=== PATIENT | male | born 1965 | race Caucasian/White ===

== ENCOUNTER 2019-07-29 07:30 | Inpatient (IN) | payer BC ==
[2019-07-25 14:05] LABS: ABG BASE EXCESS -3.5 mmol/L (-2.0-3.0); ABG HCO3 20.5 mmol/L (22.0-26.0); ABG OXYGEN SATURATION 96.2 % (95-98); ABG PCO2 (T) 34.5 mmHg (35.0-45.0); ABG PH (T) 7.391 (7.350-7.450); ABG PO2 (T) 81.2 mmHg (83-108); ALLEN'S TEST Positive; FCOHb 0.6 % (0.5-1.5); FMetHb 0.1 % (0.3-1.12); FO2Hb 95.5 % (94-100); TOTAL HEMOGLOBIN 16.6 G/dl (14.0-17.9)
[2019-07-25 16:43] LABS: HEMOGLOBIN A1C 8.5 % (4.5-6.2)
[2019-07-25 16:47] LABS: PRE OP INR 1.1 INR; PRE OP PROTIME 11.2 SECONDS (9.0-12.0)
[2019-07-25 16:48] LABS: ALBUMIN 3.5 G/DL (3.4-5.0); ALBUMIN/GLOBULIN RATIO 0.7 (1.1-1.5); ALKALINE PHOSPHATASE 94 IU/L (46-116); BLOOD UREA NITROGEN 23 MG/DL (7-18); BUN/CREATININE RATIO 13.7 (5.4-32.0); CALCIUM 9.3 MG/DL (8.5-10.1); CHLORIDE 105 MMOL/L (99-107); CREATININE 1.68 MG/DL (0.60-1.10); PRE OP ALT 67 U/L (30-65); PRE OP ANION GAP 11 (8-16); PRE OP AST 48 U/L (10-37); PRE OP BILIRUB, TOTAL 0.5 MG/DL (0.0-1.0); PRE OP GLUCOSE 124 MG/DL (70-104); PRE OP POTASSIUM 4.3 MMOL/L (3.4-5.1); PRE OP SODIUM 140 MMOL/L (135-145); TOTAL CARBON DIOXIDE 23.7 MMOL/L (24-32); TOTAL PROTEIN 8.2 G/DL (6.4-8.2); eGFR 43 ML/MIN
[2019-07-25 16:50] LABS: BASOPHILS # (AUTO) 0.1 X10'3 (0-0.2); BASOPHILS % (AUTO) 0.6 % (0-1); EOSINOPHILS # (AUTO) 0.3 X10'3 (0-0.9); EOSINOPHILS % (AUTO) 2.1 % (0-6); LYMPHOCYTES # (AUTO) 2.1 X10'3 (1.1-4.8); LYMPHOCYTES % (AUTO) 15.7 % (21-51); MEAN CORPUSCULAR HEMOGLOBIN 30.1 PG (27.0-31.0); MEAN CORPUSCULAR VOLUME 91.1 FL (78-98); MEAN PLATELET VOLUME 8.5 FL (7.4-10.4); MONOCYTES # (AUTO) 0.9 X10'3 (0-0.9); MONOCYTES % (AUTO) 6.3 % (2-12); NEUTROPHILS # (AUTO) 10.3 X10'3 (1.8-7.7); NEUTROPHILS % (AUTO) 75.3 % (42-75); PRE OP HEMATOCRIT 49.2 % (42.0-52.0); PRE OP HEMOGLOBIN 16.3 g/dL (14.0-17.9); PRE OP PLATELET COUNT 259 X10'3 (140-440); RED BLOOD COUNT 5.41 X10'6 (4.70-6.10); RED CELL DISTRIBUTION WIDTH 15.5 % (11.5-14.5)
[2019-07-25 17:10] LABS: CLARITY,URINE CLEAR (Clear); COLOR,URINE YELLOW (Yellow); GLUCOSE, URINE NEGATIVE (Neg); KETONES,URINE NEGATIVE (Neg); LEUKOCYTE ESTERASE ,URINE NEGATIVE (Neg); NITRITES, URINE NEGATIVE (Neg); OCCULT BLOOD,URINE NEGATIVE (Neg); PH,URINE 5.5 (4.8-8.0); PROTEIN,URINE TRACE mg/dl (Neg); UROBILINOGEN,URINE 0.2 E.U/dL (0.2-1.0)
[2019-07-25 17:24] LABS: UA COLLECTION TYPE CLN CATCH MIDSTREAM
[2019-07-25 17:25] LABS: BACTERIA,URINE FEW /HPF (Neg); RBC,URINE NONE SEEN /HPF (0-2); SQUAMOUS EPITHELIAL CELL,UR FEW /LPF (FEW); WBC,URINE 0-4 /HPF (0-4)
[2019-07-25 17:26] LABS: MUCUS STRANDS FEW /LPF (Neg)
[~2019-07-29] VITALS: Ht 182.9 cm; Wt 147.9 kg
[~2019-07-29 07:30] MED LIST: ASPI81TA52 PO; ATOR40TA7 PO; CARV-50 PO; DOCUMENT DATE & TIME OF BETA-BLOCKER PO ONE; LISI2.5T2 PO; RIVA15TA PO; ceFAZolin/D5W- 1GM premix 50 ML IV ONE; cefazolin/dext.iso 2gm/50ml 50 ML IV ONE; dextrose 50%-water 50ml dispensing syringe IV PRN; famotidine 20mg tablet PO ONE; gabapentin 300mg capsule PO ONE; insulin Lispro (HumaLOG) vial - multi-dose SQ PRN; insulin regular, human 100 UNIT in normal saline 100ml IV soln 99 ML IV SCH; metoprolol tartrate 12.5mg (1/2 tablet) PO ONE; mupirocin 2% nasal ointment 1gm UD NS ONE; ringers solution, lacted 1,000 ML IV SCH; vancomycin inj 1,500 MG in normal saline 300ml IV soln IV ONE
[2019-07-30] VITALS (15 sets, daily range): BP systolic 92–152; BP diastolic 32–87
[2019-07-30] MEDS ORDERED: ROPIVAcaine 0.5% (5mg/ml) 30ml vial ONE (05:14)
[2019-07-30] MEDS ORDERED: LIDOcaine 1% (10mg/ml) 2ml vial ONE (05:22)
[2019-07-30] MEDS ORDERED: vancomycin inj 1,500 MG in normal saline 300ml IV soln IV ONE (05:30)
[2019-07-30] MEDS ORDERED: famotidine 20mg tablet PO ONE (05:30)
[2019-07-30] MEDS ORDERED: ringers solution, lacted 1,000 ML IV SCH (05:30)
[2019-07-30] MEDS ORDERED: metoprolol tartrate 12.5mg (1/2 tablet) PO ONE (05:30)
[2019-07-30] MEDS ORDERED: cefazolin/dext.iso 2gm/50ml 50 ML IV ONE (05:30)
[2019-07-30] MEDS ORDERED: mupirocin 2% nasal ointment 1gm UD NS ONE (05:30)
[2019-07-30] MEDS ORDERED: DOCUMENT DATE & TIME OF BETA-BLOCKER PO ONE (05:30)
[2019-07-30] MEDS ORDERED: gabapentin 300mg capsule PO ONE (05:30)
[2019-07-30] MEDS: insulin regular, human 100 UNIT in normal saline 100ml IV soln 99 ML IV SCH ×6 (05:30→18:33)
[2019-07-30] MEDS ORDERED: ceFAZolin/D5W- 1GM premix 50 ML IV ONE (05:30)
[2019-07-30] MEDS ORDERED: LORazepam 2 mg/ml vial ONE (06:04)
[2019-07-30] MEDS ORDERED: midazolam 2 mg/2 ml injection ONE (06:09)
[2019-07-30] MEDS ORDERED: SUFENTANIL CITRATE 50 MCG/ML 2ml ampule IV ONE ×2 (06:09→08:08)
[2019-07-30] MEDS ORDERED: aminocaproic acid 250 MG/1 ML inj. ONE ×2 (06:14→08:00)
[2019-07-30] MEDS ORDERED: INSULIN R 100 UNIT in NS 100ML (1 UNIT/1 ML) BAG IV ONE (06:14)
[2019-07-30] MEDS ORDERED: protamine sulf. 10mg/ml inj. IV ONE (06:14)
[2019-07-30] MEDS ORDERED: nitroGLYCERIN in D5W 50mg/250ml (Tridil) infusion IV ONE (06:14)
[2019-07-30] MEDS ORDERED: DOPamine/D5W 400mg/250ml bag IV ONE (06:14)
[2019-07-30] MEDS ORDERED: isoflurane 100ml inhalation liquid IH ONE (06:14)
[2019-07-30] MEDS ORDERED: ceFAZolin 1000mg inj ONE (06:14)
[2019-07-30] MEDS ORDERED: papaverine 30 mg/ml 2ml inj. IA ONE (07:00)
[2019-07-30] MEDS ORDERED: heparin 10,000 units/1 ML INJ IR ONE (07:00)
[2019-07-30 07:06] LABS: ABG HCO3 20.1 mmol/L (22.0-26.0); ABG OXYGEN SATURATION 99.3 % (95-98); ABG PCO2 41.8 mmHg (35.0-45.0); CL (ABG) 103 mmol/L (99-107); FCOHb 0.8 % (0.5-1.5); FMetHb 0.3 % (0.3-1.12); FO2Hb 98.2 % (94-100); GLUCOSE (ABG) 191 mg/dl (70-104); K (ABG) 4.5 mmol/L (3.3-5.1); NA (ABG) 137 mmol/L (135-145); TOTAL HEMOGLOBIN 14.9 G/dl (14.0-17.9)
[2019-07-30] MEDS ORDERED: papaverine 30 mg/ml 2ml inj. ONE (08:00)
[2019-07-30] MEDS ORDERED: calcium chloride 100 MG/1 ML inj IV ONE (08:00)
[2019-07-30] MEDS ORDERED: LIDOcaine 2% (20 mg/ml) 5ml cardiac syringe ONE (08:00)
[2019-07-30] MEDS ORDERED: sodium bicarbonate (8.4%) 1 mEq/ml syringe ONE (08:00)
[2019-07-30] MEDS ORDERED: potassium Cl 2 mEq/ml inj IV ONE (08:00)
[2019-07-30] MEDS ORDERED: furosemide 40mg/4ml inj ONE (08:00)
[2019-07-30] MEDS ORDERED: magnesium sulf 1 GM/2 ML ONE (08:00)
[2019-07-30] MEDS ORDERED: heparin 10,000 units/1 ML INJ ONE (08:00)
[2019-07-30] MEDS ORDERED: methylPREDNISolone sod. succ. 500mg inj ONE (08:00)
[2019-07-30] MEDS ORDERED: phenylephrine 10mg/ml inj. ONE ×2 (08:00→08:15)
[2019-07-30] MEDS ORDERED: albumin (human) 25% 100 ML IV solution IV ONE (08:00)
[2019-07-30] MEDS ORDERED: heparin 1,000 units/ml 10ml inj ONE (08:00)
[2019-07-30 08:10] LABS: ABG BASE EXCESS VENOUS -4.5 mmol/L; ABG HCO3 VENOUS 22.6 mmol/L; ABG PCO2 VENOUS 49.4 mmHg; ABG PO2 VENOUS 39.5 mmHg; CL (ABG) 103 mmol/L (99-107); FCOHb VENOUS 0.7 %; FHHb VENOUS 28.6 %; FMetHb VENOUS 0.5 %; FO2Hb VENOUS 70.2 %; GLUCOSE (ABG) 156 mg/dl (70-104); IONIZED CA (ABG) 1.07 mmol/L (1.03-1.32); K (ABG) 4.4 mmol/L (3.3-5.1); NA (ABG) 136 mmol/L (135-145); TOTAL HEMOGLOBIN 14.5 G/dl (14.0-17.9)
[2019-07-30] MEDS ORDERED: rocuronium 10mg/ml inj IV ONE ×2 (08:15→10:53)
[2019-07-30] MEDS ORDERED: LIDOcaine 2% (20mg/ml) 5ml vial ONE (08:15)
[2019-07-30] MEDS ORDERED: epiNEPHrine 1 mg/ml inj ONE (08:15)
[2019-07-30] MEDS ORDERED: succinylcholine 20mg/ml inj IV ONE (08:15)
[2019-07-30] MEDS ORDERED: etomidate 2mg/ml inj. ONE (08:15)
[2019-07-30 08:31] LABS: ABG BASE EXCESS -5.4 mmol/L (-2.0-3.0); ABG HCO3 19.3 mmol/L (22.0-26.0); ABG OXYGEN SATURATION 99.1 % (95-98); ABG PCO2 35.1 mmHg (35.0-45.0); ABG PH 7.359 (7.350-7.450); ABG PO2 221.8 mmHg (60.0-100.0); CL (ABG) 101 mmol/L (99-107); FCOHb 0.5 % (0.5-1.5); FMetHb 0.4 % (0.3-1.12); FO2Hb 98.2 % (94-100); GLUCOSE (ABG) 130 mg/dl (70-104); IONIZED CA (ABG) 0.97 mmol/L (1.03-1.32); K (ABG) 4.3 mmol/L (3.3-5.1); NA (ABG) 133 mmol/L (135-145); TOTAL HEMOGLOBIN 12.2 G/dl (14.0-17.9)
[2019-07-30 08:55] LABS: ABG BASE EXCESS -2.9 mmol/L (-2.0-3.0); ABG HCO3 22.7 mmol/L (22.0-26.0); ABG OXYGEN SATURATION 99.2 % (95-98); ABG PCO2 42.4 mmHg (35.0-45.0); ABG PH 7.346 (7.350-7.450); ABG PO2 235.1 mmHg (60.0-100.0); CL (ABG) 103 mmol/L (99-107); FCOHb 0.6 % (0.5-1.5); FMetHb 0.5 % (0.3-1.12); FO2Hb 98.1 % (94-100); GLUCOSE (ABG) 123 mg/dl (70-104); IONIZED CA (ABG) 1.01 mmol/L (1.03-1.32); NA (ABG) 135 mmol/L (135-145); TOTAL HEMOGLOBIN 12.3 G/dl (14.0-17.9)
[2019-07-30] MEDS ORDERED: ipratropium/albuterol 3ml nebule IH PRN (09:10)
[2019-07-30 09:20] LABS: ABG BASE EXCESS VENOUS -1.3 mmol/L; ABG HCO3 VENOUS 25.3 mmol/L; ABG PCO2 VENOUS 50.6 mmHg; ABG PO2 VENOUS 51.6 mmHg; CL (ABG) 103 mmol/L (99-107); FCOHb VENOUS 0.6 %; FHHb VENOUS 16.3 %; FMetHb VENOUS 0.4 %; FO2Hb VENOUS 82.7 %; GLUCOSE (ABG) 124 mg/dl (70-104); IONIZED CA (ABG) 1.02 mmol/L (1.03-1.32); K (ABG) 5.4 mmol/L (3.3-5.1); NA (ABG) 137 mmol/L (135-145); TOTAL HEMOGLOBIN 12.4 G/dl (14.0-17.9)
[2019-07-30 09:40] LABS: ABG BASE EXCESS -1.9 mmol/L (-2.0-3.0); ABG HCO3 23.9 mmol/L (22.0-26.0); ABG OXYGEN SATURATION 99.4 % (95-98); ABG PCO2 44.9 mmHg (35.0-45.0); ABG PH 7.344 (7.350-7.450); ABG PO2 344.3 mmHg (60.0-100.0); CL (ABG) 104 mmol/L (99-107); FCOHb 0.8 % (0.5-1.5); FMetHb 0.4 % (0.3-1.12); FO2Hb 98.2 % (94-100); GLUCOSE (ABG) 125 mg/dl (70-104); IONIZED CA (ABG) 1.02 mmol/L (1.03-1.32); K (ABG) 5.1 mmol/L (3.3-5.1); NA (ABG) 136 mmol/L (135-145); TOTAL HEMOGLOBIN 12.4 G/dl (14.0-17.9)
[2019-07-30 10:05] LABS: ABG BASE EXCESS -2.5 mmol/L (-2.0-3.0); ABG OXYGEN SATURATION 99.2 % (95-98); ABG PCO2 42.6 mmHg (35.0-45.0); ABG PO2 321.6 mmHg (60.0-100.0); CL (ABG) 104 mmol/L (99-107); FCOHb 0.1 % (0.5-1.5); FMetHb 0.5 % (0.3-1.12); FO2Hb 98.6 % (94-100); GLUCOSE (ABG) 126 mg/dl (70-104); IONIZED CA (ABG) 1.03 mmol/L (1.03-1.32); K (ABG) 4.9 mmol/L (3.3-5.1); NA (ABG) 136 mmol/L (135-145); TOTAL HEMOGLOBIN 12.4 G/dl (14.0-17.9)
[2019-07-30 10:56] LABS: ABG BASE EXCESS -2.6 mmol/L (-2.0-3.0); ABG HCO3 23.7 mmol/L (22.0-26.0); ABG OXYGEN SATURATION 99.1 % (95-98); ABG PCO2 47.2 mmHg (35.0-45.0); ABG PH 7.319 (7.350-7.450); ABG PO2 300.7 mmHg (60.0-100.0); CL (ABG) 104 mmol/L (99-107); FCOHb 0.2 % (0.5-1.5); FMetHb 0.6 % (0.3-1.12); FO2Hb 98.3 % (94-100); GLUCOSE (ABG) 142 mg/dl (70-104); IONIZED CA (ABG) 1.04 mmol/L (1.03-1.32); K (ABG) 4.7 mmol/L (3.3-5.1); NA (ABG) 136 mmol/L (135-145); TOTAL HEMOGLOBIN 12.7 G/dl (14.0-17.9)
[2019-07-30 11:25] LABS: ABG BASE EXCESS -1.8 mmol/L (-2.0-3.0); ABG HCO3 24.1 mmol/L (22.0-26.0); ABG OXYGEN SATURATION 98.7 % (95-98); ABG PCO2 45.4 mmHg (35.0-45.0); ABG PH 7.342 (7.350-7.450); ABG PO2 227.6 mmHg (60.0-100.0); CL (ABG) 103 mmol/L (99-107); FMetHb 0.6 % (0.3-1.12); FO2Hb 98.1 % (94-100); GLUCOSE (ABG) 137 mg/dl (70-104); IONIZED CA (ABG) 1.51 mmol/L (1.03-1.32); K (ABG) 4.8 mmol/L (3.3-5.1); NA (ABG) 134 mmol/L (135-145); TOTAL HEMOGLOBIN 11.9 G/dl (14.0-17.9)
[2019-07-30 11:56] LABS: ABG BASE EXCESS -2.5 mmol/L (-2.0-3.0); ABG HCO3 22.9 mmol/L (22.0-26.0); ABG OXYGEN SATURATION 91.9 % (95-98); ABG PCO2 41.7 mmHg (35.0-45.0); ABG PH 7.357 (7.350-7.450); ABG PO2 65.2 mmHg (60.0-100.0); CL (ABG) 104 mmol/L (99-107); FCOHb 0.6 % (0.5-1.5); FMetHb 0.5 % (0.3-1.12); FO2Hb 90.9 % (94-100); GLUCOSE (ABG) 177 mg/dl (70-104); IONIZED CA (ABG) 1.13 mmol/L (1.03-1.32); K (ABG) 4.6 mmol/L (3.3-5.1); NA (ABG) 140 mmol/L (135-145); TOTAL HEMOGLOBIN 12.9 G/dl (14.0-17.9)
[2019-07-30 12:31] LABS: ABG BASE EXCESS -4.6 mmol/L (-2.0-3.0); ABG HCO3 21.6 mmol/L (22.0-26.0); ABG PCO2 43.9 mmHg (35.0-45.0); ABG PO2 53.6 mmHg (60.0-100.0); CL (ABG) 104 mmol/L (99-107); FCOHb 0.9 % (0.5-1.5); FMetHb 0.5 % (0.3-1.12); FO2Hb 83.8 % (94-100); GLUCOSE (ABG) 188 mg/dl (70-104); IONIZED CA (ABG) 1.12 mmol/L (1.03-1.32); K (ABG) 4.4 mmol/L (3.3-5.1); NA (ABG) 138 mmol/L (135-145); TOTAL HEMOGLOBIN 13.6 G/dl (14.0-17.9)
[2019-07-30 12:50] LABS: ACTIVATED CLOTTING TIME 120 SEC (101-148)
[2019-07-30 12:50] LABS: ACT @ 1.70 U 286 SEC (193-297); ACT @ 2.84 U 394 SEC (260-420); BASELINE ACT 135 SEC (101-148)
[2019-07-30] MEDS ORDERED: DOPamine 400mg/D5W 250ml 250 ML IV PRN (12:52)
[2019-07-30] MEDS ORDERED: nitroGLYCERIN-Tridil 50MG/D5W 250 ML IV PRN (12:52)
[2019-07-30] MEDS ORDERED: niCARDipine-NS 40mg/200ml IVPB 200 ML IV PRN (12:52)
[2019-07-30] MEDS ORDERED: sodium chloride 0.45% 1,000 ML IV SCH (12:52)
[2019-07-30] MEDS ORDERED: dextrose 50%-water 50ml dispensing syringe IV PRN (12:55)
[2019-07-30] MEDS ORDERED: magnesium hydroxide 30ml (MOM) UD suspension PO PRN (12:55)
[2019-07-30] MEDS ORDERED: ondansetron/PF 4mg/2ml inj IV PRN (12:55)
[2019-07-30] MEDS ORDERED: sodium phosphate inj. 15 MMOL in dextrose 5%-water 150 ML IV PRN (12:55)
[2019-07-30] MEDS ORDERED: sodium phosphate inj. 30 MMOL in dextrose 5%-water 250 ML IV PRN (12:55)
[2019-07-30] MEDS ORDERED: insulin regular, human inj. 100 UNITS in normal saline 100ml IV soln 100 ML IV SCH ×2 (12:55)
[2019-07-30] MEDS ORDERED: magnesium 4gm in 100ml NS 100 ML IV PRN (12:55)
[2019-07-30] MEDS ORDERED: pantoprazole 40 MG vial IV ONE (12:55)
[2019-07-30] MEDS ORDERED: normal saline 250ml IV soln 250 ML IV PRN (12:55)
[2019-07-30] MEDS ORDERED: morphine 4 MG/ML inj SYRINge IV PRN (12:55)
[2019-07-30] MEDS ORDERED: Neutra Phos packet PO PRN (12:55)
[2019-07-30] MEDS ORDERED: metoclopramide 5 mg/ml inj IV PRN (12:55)
[2019-07-30] MEDS ORDERED: potassium Cl 20 mEq SR tablet PO PRN (12:55)
--- NOTE | 2019-07-30 13:50 | NUR ---
Received to room , accompanied by MDs and surgical crew. Placed on ventilator, to cardiac catheterization technologist, arterial line and PA line pressure monitored. Chest tubes to suction at 20 cm. Mallory cath to gravity drainage. Dressings are dry and intact. See assessment record. All vasoactive drugs are infusing via central line.
[2019-07-30 14:00] LABS: ABG BASE EXCESS -4.8 mmol/L (-2.0-3.0); ABG HCO3 20.5 mmol/L (22.0-26.0); ABG OXYGEN SATURATION 92.7 % (95-98); ABG PCO2 (T) 40.1 mmHg (35.0-45.0); ABG PH (T) 7.329 (7.350-7.450); ABG PO2 (T) 71.7 mmHg (83-108); FCOHb 0.6 % (0.5-1.5); FMetHb 0.3 % (0.3-1.12); FO2Hb 91.9 % (94-100); MINUTE VOLUME 13 L/min; PATIENT TEMPERATURE 37.6; PEEP 5 cm H2O; RESPIRATORY RATE 12 b/min; RESPIRATORY RATE (OBSERVED) 19 b/min; TIDAL VOLUME 800 mL; TOTAL HEMOGLOBIN 15.6 G/dl (14.0-17.9)
[2019-07-30 14:13] LABS: BASOPHILS # (AUTO) 0.1 X10'3 (0-0.2); BASOPHILS % (AUTO) 0.2 % (0-1); EOSINOPHILS # (AUTO) 0.1 X10'3 (0-0.9); EOSINOPHILS % (AUTO) 0.3 % (0-6); HEMATOCRIT 44.3 % (42.0-52.0); HEMOGLOBIN 14.6 g/dl (14.0-17.9); LYMPHOCYTES # (AUTO) 2.2 X10'3 (1.1-4.8); LYMPHOCYTES % (AUTO) 7.5 % (21-51); MEAN PLATELET VOLUME 8.1 FL (7.4-10.4); MONOCYTES # (AUTO) 1.5 X10'3 (0-0.9); MONOCYTES % (AUTO) 5.1 % (2-12); NEUTROPHILS # (AUTO) 25.3 X10'3 (1.8-7.7); NEUTROPHILS % (AUTO) 86.9 % (42-75); PLATELET COUNT 188 X10'3 (140-440); RED BLOOD COUNT 4.87 X10'6 (4.70-6.10); RED CELL DISTRIBUTION WIDTH 15.8 % (11.5-14.5)
[2019-07-30 14:20] LABS: PARTIAL THROMBOPLASTIN TIME 24 SECONDS (22-32)
[2019-07-30 14:22] LABS: ALANINE AMINOTRANSFERASE 59 U/L (12-78); ALBUMIN 2.8 G/DL (3.4-5.0); ALBUMIN/GLOBULIN RATIO 0.8 (1.1-1.5); ALKALINE PHOSPHATASE 68 IU/L (46-116); ANION GAP 12 (8-16); ASPARTATE AMINO TRANSFERASE 173 U/L (10-37); BILIRUBIN,TOTAL 0.9 MG/DL (0.1-1.0); BLOOD UREA NITROGEN 24 MG/DL (7-18); BUN/CREATININE RATIO 12.3 (5.4-32.0); CALCIUM 7.7 MG/DL (8.5-10.1); CHLORIDE 107 MMOL/L (99-107); CREATININE 1.95 MG/DL (0.60-1.10); GLUCOSE 233 MG/DL (70-104); MAGNESIUM 2.3 MG/DL (1.5-2.4); PHOSPHORUS 2.9 MG/DL (2.3-4.5); POTASSIUM 4.9 MMOL/L (3.5-5.1); SODIUM 141 MMOL/L (135-145); TOTAL CARBON DIOXIDE 22.5 MMOL/L (24-32); TOTAL PROTEIN 6.2 G/DL (6.4-8.2); eGFR 36 ML/MIN
[2019-07-30] MEDS: albumin (Human) 5% 250ml 250 ML IV PRN ×3 (14:23→15:40)
[2019-07-30 14:24] LABS: WHITE BLOOD COUNT 29.1 X10'3 (4.5-11.0)
[2019-07-30] MEDS: magnesium 2GM in 50ml NS 50 ML IV PRN ×2 (14:51→21:42)
[2019-07-30 14:58] LABS: PLATELET ESTIMATE NORMAL; TOTAL CELLS COUNTED 100
--- NOTE | 2019-07-30 16:37 | NUR ---
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 Will continue to follow. Addendum: 07/30/19 at [address] Amended: Links added.
[2019-07-30] MEDS ORDERED: albumin (Human) 5% 250ml 250 ML IV ONE ×2 (16:40)
--- NOTE | 2019-07-30 16:40 | NUR ---
Central line out [address] Rodriguez. Order for CXR obtained.
[2019-07-30] MEDS: gabapentin 300mg capsule PO SCH ×2 (16:44→20:34)
[2019-07-30] MEDS: ceFAZolin 1GM/D5W- ADD-VANTAGE 50 ML IV SCH ×2 (16:44→23:24)
[2019-07-30] MEDS: morphine 4 MG/ML inj SYRINge IV PRN ×2 (16:58→20:13)
--- NOTE | 2019-07-30 17:15 | NUR ---
Dr. Charles at bedside. Received order to DC central line.
[2019-07-30] MEDS ORDERED: amiodarone/D5 360MG/200ML BAG 200 ML IV SCH (17:45)
[2019-07-30] MEDS: insulin Lispro (HumaLOG) vial - multi-dose SQ SCH ×2 (18:00→20:20)
--- NOTE | 2019-07-30 18:00 | NUR ---
Dr. Rodriguez at bedside to assess pt. Lines discussed. Hemodynamics reviewed. New med orders received. Pacer started at 80 bpm. CO is to be maintained between 5.0-5.5 /min. Right IJ quad lumen has been discontinued per Dr. Tabares's order.
[2019-07-30] MEDS ORDERED: amiodarone/D5 360MG/200ML BAG 200 ML IV ONE (18:04)
[2019-07-30] MEDS ORDERED: epiNEPHrine inj 5 MG, calcium chloride inj. 1,000 MG in normal saline 250ml IV soln 235 ML IV PRN (18:15)
--- NOTE | 2019-07-30 18:15 | NUR ---
Dr. Rodriguez verbal orders for Milrinone gtt and Epi carmita gtt to maintain CO of 5-5.5, compatible at Y site per Marysol in pharmacy.
[2019-07-30] MEDS: amiodarone/D5 360MG/200ML BAG 200 ML IV SCH ×2 (18:34→23:24)
--- NOTE | 2019-07-30 18:40 | NUR ---
Problems reprioritized. Patient report given, questions answered & plan of care reviewed with SILVINA Pizarro.
--- NOTE | 2019-07-30 18:40 | NUR ---
Patient in room ICU 2045. I have received report from Aldo COOL and had the opportunity to ask questions and assume patient care. Pt resting in bed, EpiCal gtt infusing via introducer sheath, awaiting Milrinone gtt from pharmacy, will infuse with EpiCal gtt in introducer sheath in right IJ, medications are compatible per pharmacist Marysol. Insulin gtt for blood glucose control per protocol, amiodarone gtt for arrhythmia control. pt on vent SIMV mode with FiO2 at 55%, spo2 at 98%. mediastinal chest tubes to suction, no air leak, no crepitus, no tracheal deviation noted. Pt opening eyes and obeying commands. Please see IV flowsheet and Interventions for further information. Will continue to monitor.
[2019-07-30 18:45] LABS: OXYGEN SATURATION (MIXED VEN) 42.9 % (60-80); PO2 MIXED VENOUS (TEMP COR) 24.5 mmHg (35-46)
[2019-07-30] MEDS: milrinone (Primacor) 20mg/D5W 100 ML IV SCH ×2 (19:00→23:21)
--- NOTE | 2019-07-30 19:25 | NUR ---
Pt asihle-kr-nhr Grzegorz at bedside to visit, per Grzegorz pt wears home CPAP for sleep apnea, she will bring in tomorrow.
[2019-07-30 19:58] LABS: BASOPHILS % (AUTO) 0.1 % (0-1); EOSINOPHILS % (AUTO) 0 % (0-6); HEMATOCRIT 37.6 % (42.0-52.0); HEMOGLOBIN 12.6 g/dl (14.0-17.9); LYMPHOCYTES # (AUTO) 0.9 X10'3 (1.1-4.8); LYMPHOCYTES % (AUTO) 5.5 % (21-51); MEAN CORPUSCULAR HEMOGLOBIN 30.2 PG (27.0-31.0); MEAN CORPUSCULAR HGB CONC 33.4 g/dL (33.0-36.5); MEAN CORPUSCULAR VOLUME 90.5 FL (78-98); MEAN PLATELET VOLUME 8.1 FL (7.4-10.4); MONOCYTES # (AUTO) 0.4 X10'3 (0-0.9); MONOCYTES % (AUTO) 2.5 % (2-12); NEUTROPHILS # (AUTO) 15.7 X10'3 (1.8-7.7); NEUTROPHILS % (AUTO) 91.9 % (42-75); PLATELET COUNT 147 X10'3 (140-440); RED BLOOD COUNT 4.15 X10'6 (4.70-6.10); RED CELL DISTRIBUTION WIDTH 15.5 % (11.5-14.5); WHITE BLOOD COUNT 17.1 X10'3 (4.5-11.0)
[2019-07-30 20:07] LABS: ALBUMIN 3.4 G/DL (3.4-5.0); ANION GAP 12 (8-16); BLOOD UREA NITROGEN 26 MG/DL (7-18); BUN/CREATININE RATIO 11.7 (5.4-32.0); CALCIUM 7.2 MG/DL (8.5-10.1); CHLORIDE 108 MMOL/L (99-107); CREATININE 2.23 MG/DL (0.60-1.10); GLUCOSE 219 MG/DL (70-104); MAGNESIUM 2.4 MG/DL (1.5-2.4); PHOSPHORUS 1.8 MG/DL (2.3-4.5); POTASSIUM 4.8 MMOL/L (3.5-5.1); SODIUM 140 MMOL/L (135-145); TOTAL CARBON DIOXIDE 19.9 MMOL/L (24-32); eGFR 31 ML/MIN
[2019-07-30] MEDS: vancomycin/NS 1 GM ADD-VANTAGE 250 ML IV SCH (20:31)
[2019-07-30] MEDS: docusate sod 100mg capsule PO SCH (20:34)
[2019-07-30] MEDS: mupirocin 2% nasal ointment 1gm UD NS SCH (20:34)
--- NOTE | 2019-07-30 23:45 | NUR ---
pt extubated without issue at 2340, RT at bedside, pt able to talk with good quality of voice.
[2019-07-31] VITALS (24 sets, daily range): BP systolic 101–158; BP diastolic 3–100
--- NOTE | 2019-07-31 00:30 | NUR ---
Pt able to eat several ice chips, good swallowing, no nausea noted.
[2019-07-31] MEDS: insulin regular, human 100 UNIT in normal saline 100ml IV soln 99 ML IV SCH ×4 (01:34→07:25)
[2019-07-31 03:45] LABS: PARTIAL THROMBOPLASTIN TIME 25 SECONDS (22-32)
[2019-07-31 03:46] LABS: BASOPHILS % (AUTO) 0.1 % (0-1); EOSINOPHILS % (AUTO) 0 % (0-6); HEMATOCRIT 34.3 % (42.0-52.0); HEMOGLOBIN 11.5 g/dl (14.0-17.9); LYMPHOCYTES % (AUTO) 5.5 % (21-51); MEAN CORPUSCULAR HEMOGLOBIN 30.5 PG (27.0-31.0); MEAN CORPUSCULAR HGB CONC 33.4 g/dL (33.0-36.5); MEAN CORPUSCULAR VOLUME 91.3 FL (78-98); MEAN PLATELET VOLUME 8.7 FL (7.4-10.4); MONOCYTES # (AUTO) 0.5 X10'3 (0-0.9); MONOCYTES % (AUTO) 2.7 % (2-12); NEUTROPHILS # (AUTO) 16.5 X10'3 (1.8-7.7); NEUTROPHILS % (AUTO) 91.7 % (42-75); PLATELET COUNT 135 X10'3 (140-440); RED BLOOD COUNT 3.76 X10'6 (4.70-6.10); RED CELL DISTRIBUTION WIDTH 15.9 % (11.5-14.5)
[2019-07-31 04:04] LABS: ALANINE AMINOTRANSFERASE 65 U/L (12-78); ALBUMIN 3.3 G/DL (3.4-5.0); ALBUMIN/GLOBULIN RATIO 1.2 (1.1-1.5); ALKALINE PHOSPHATASE 46 IU/L (46-116); ANION GAP 8 (8-16); ASPARTATE AMINO TRANSFERASE 259 U/L (10-37); BILIRUBIN,TOTAL 0.4 MG/DL (0.1-1.0); BLOOD UREA NITROGEN 30 MG/DL (7-18); BUN/CREATININE RATIO 12.2 (5.4-32.0); CALCIUM 7.3 MG/DL (8.5-10.1); CHLORIDE 112 MMOL/L (99-107); CREATININE 2.46 MG/DL (0.60-1.10); GLUCOSE 151 MG/DL (70-104); MAGNESIUM 2.8 MG/DL (1.5-2.4); PHOSPHORUS 2.9 MG/DL (2.3-4.5); POTASSIUM 4.2 MMOL/L (3.5-5.1); SODIUM 145 MMOL/L (135-145); TOTAL CARBON DIOXIDE 24.9 MMOL/L (24-32); eGFR 28 ML/MIN
[2019-07-31] MEDS: potassium Cl 20mEq/100mL bag 100 ML IV PRN ×2 (05:08→07:24)
[2019-07-31] MEDS: HYDROcodone/acetaminophen 10/325mg tab PO PRN ×5 (05:27→23:45)
--- NOTE | 2019-07-31 05:40 | NUR ---
Pt ate applesauce after having [place], pt able to swallow without issue, pt is c/o sore throat.
--- NOTE | 2019-07-31 06:30 | NUR ---
Patient in room ICU 2045. I have received report from Moira COOL and had the opportunity to ask questions and assume patient care.
--- NOTE | 2019-07-31 06:33 | NUR ---
Problems reprioritized. Patient report given, questions answered & plan of care reviewed with Bayron COOL.
[2019-07-31] MEDS: gabapentin 300mg capsule PO SCH ×3 (07:36→20:56)
[2019-07-31] MEDS: docusate sod 100mg capsule PO SCH ×2 (07:36→19:49)
[2019-07-31] MEDS: vancomycin/NS 1 GM ADD-VANTAGE 250 ML IV SCH ×2 (07:37→19:47)
[2019-07-31] MEDS: ceFAZolin 1GM/D5W- ADD-VANTAGE 50 ML IV SCH ×3 (07:37→23:44)
[2019-07-31] MEDS: mupirocin 2% nasal ointment 1gm UD NS SCH ×2 (07:39→19:49)
[2019-07-31] MEDS ORDERED: metoprolol tartrate 12.5mg (1/2 tablet) PO SCH ×2 (08:00→20:00)
[2019-07-31] MEDS ORDERED: aspirin 325mg tablet, delayed-release (Ecotrin) PO SCH (08:00)
[2019-07-31] MEDS ORDERED: atorvastatin 10mg tablet PO SCH (08:00)
[2019-07-31] MEDS ORDERED: furosemide 10 MG/1 ML 10ml inj IV ONE (08:30)
[2019-07-31] MEDS: insulin Lispro (HumaLOG) vial - multi-dose SQ SCH ×4 (09:57→21:09)
[2019-07-31] MEDS: amiodarone/D5 360MG/200ML BAG 200 ML IV SCH ×4 (10:26→22:46)
[2019-07-31] MEDS ORDERED: dextrose ORAL solution 15 GM/59 ML bottle PO PRN ×2 (11:15)
--- NOTE | 2019-07-31 12:33 | NUR ---
Pt was ambulated, 2 person standby, with a gait belt fdc down the unit cintron. When returning to his room he was placed in a chair. BP 134/80, HR 73 (NSR), O2 sat 98% on 3L NC, RR 14. Patient complained of feeling nauseous right after sitting down. He did not vomit. Nausea passed on its own after he sat for a few minutes. Thjinu-he-kfk is sitting in room visiting with patient.
[2019-07-31] MEDS: insulin glargine (Lantus) pen - multi-dose SQ SCH (13:05)
[2019-07-31] MEDS: amiodarone 200mg tablet PO SCH ×2 (13:10→20:56)
[2019-07-31 16:15] LABS: ALBUMIN 3.3 G/DL (3.4-5.0); ANION GAP 9 (8-16); BLOOD UREA NITROGEN 37 MG/DL (7-18); BUN/CREATININE RATIO 12.7 (5.4-32.0); CALCIUM 7.2 MG/DL (8.5-10.1); CHLORIDE 107 MMOL/L (99-107); CREATININE 2.91 MG/DL (0.60-1.10); GLUCOSE 162 MG/DL (70-104); POTASSIUM 5.1 MMOL/L (3.5-5.1); SODIUM 140 MMOL/L (135-145); TOTAL CARBON DIOXIDE 23.8 MMOL/L (24-32); eGFR 23 ML/MIN
[2019-07-31] MEDS: milrinone (Primacor) 20mg/D5W 100 ML IV SCH ×3 (19:07→19:28)
[2019-07-31] MEDS: carvedilol 6.25mg tablet PO SCH (19:49)
[2019-08-01] VITALS (16 sets, daily range): BP systolic 129–161; BP diastolic 67–100
[2019-08-01] MEDS: milrinone (Primacor) 20mg/D5W 100 ML IV SCH (00:57)
[2019-08-01 04:40] LABS: BASOPHILS # (AUTO) 0.1 X10'3 (0-0.2); BASOPHILS % (AUTO) 0.4 % (0-1); EOSINOPHILS % (AUTO) 0 % (0-6); HEMATOCRIT 35.2 % (42.0-52.0); HEMOGLOBIN 11.5 g/dl (14.0-17.9); LYMPHOCYTES # (AUTO) 1.2 X10'3 (1.1-4.8); LYMPHOCYTES % (AUTO) 4.9 % (21-51); MEAN CORPUSCULAR HGB CONC 32.8 g/dL (33.0-36.5); MEAN CORPUSCULAR VOLUME 91.5 FL (78-98); MEAN PLATELET VOLUME 8.8 FL (7.4-10.4); MONOCYTES # (AUTO) 1.1 X10'3 (0-0.9); MONOCYTES % (AUTO) 4.6 % (2-12); NEUTROPHILS # (AUTO) 21.5 X10'3 (1.8-7.7); NEUTROPHILS % (AUTO) 90.1 % (42-75); PLATELET COUNT 128 X10'3 (140-440); RED BLOOD COUNT 3.85 X10'6 (4.70-6.10); WHITE BLOOD COUNT 23.8 X10'3 (4.5-11.0)
[2019-08-01 04:50] LABS: ANION GAP 12 (8-16); BLOOD UREA NITROGEN 49 MG/DL (7-18); BUN/CREATININE RATIO 17.4 (5.4-32.0); CALCIUM 7.1 MG/DL (8.5-10.1); CHLORIDE 103 MMOL/L (99-107); CREATININE 2.82 MG/DL (0.60-1.10); GLUCOSE 255 MG/DL (70-104); MAGNESIUM 2.5 MG/DL (1.5-2.4); PHOSPHORUS 4.9 MG/DL (2.3-4.5); POTASSIUM 5.6 MMOL/L (3.5-5.1); SODIUM 135 MMOL/L (135-145); TOTAL CARBON DIOXIDE 19.9 MMOL/L (24-32); eGFR 24 ML/MIN
--- NOTE | 2019-08-01 06:31 | NUR ---
Problems reprioritized. Patient report given, questions answered & plan of care reviewed with Byaron COOL.
--- NOTE | 2019-08-01 06:45 | NUR ---
Patient in room ICU 2045. I have received report from Moira COOL and had the opportunity to ask questions and assume patient care.
[2019-08-01] MEDS: gabapentin 300mg capsule PO SCH (07:45)
[2019-08-01] MEDS: carvedilol 6.25mg tablet PO SCH (07:46)
[2019-08-01] MEDS: pantoprazole 40mg Tablet.DR PO SCH (07:46)
[2019-08-01] MEDS: amiodarone 200mg tablet PO SCH ×3 (07:46→21:56)
[2019-08-01] MEDS: docusate sod 100mg capsule PO SCH ×2 (07:47→20:00)
[2019-08-01] MEDS: atorvastatin 20mg tablet PO SCH (07:47)
[2019-08-01] MEDS: aspirin 81mg tablet.DR PO SCH (07:48)
[2019-08-01] MEDS: mupirocin 2% nasal ointment 1gm UD NS SCH (07:48)
[2019-08-01] MEDS ORDERED: carVEDilol 12.5mg tablet PO SCH (08:14)
[2019-08-01] MEDS ORDERED: amiodarone 200mg tablet PO SCH (08:15)
[2019-08-01] MEDS ORDERED: magnesium 2GM in 50ml NS 50 ML IV PRN (08:20)
[2019-08-01] MEDS ORDERED: potassium Cl 20mEq/100mL bag 100 ML IV PRN (08:20)
[2019-08-01] MEDS ORDERED: magnesium 4gm in 100ml NS 100 ML IV PRN (08:20)
[2019-08-01] MEDS: insulin Lispro (HumaLOG) vial - multi-dose SQ SCH ×3 (09:02→19:17)
[2019-08-01] MEDS: rivaroxaban 15mg tablet PO SCH (10:05)
[2019-08-01] MEDS ORDERED: sodium polystyrene sulfonate 15gm/60ml oral suspension PO ONE (10:30)
--- NOTE | 2019-08-01 11:45 | NUR ---
Patient transferred to the ACCE unit, for continuation of care. Patient was able to transfer self with standby assist from wheelchair to bed.
--- NOTE | 2019-08-01 11:45 | NUR ---
Problems reprioritized. Patient report given, questions answered & plan of care reviewed with Lissette COOL.
--- NOTE | 2019-08-01 11:50 | NUR ---
Patient in room MED 308. I have received report from SILVINA Verma and had the opportunity to ask questions and assume patient care.
[2019-08-01] MEDS: HYDROcodone/acetaminophen 10/325mg tab PO PRN ×2 (13:52→21:56)
--- NOTE | 2019-08-01 18:00 | NUR ---
Patient in room MED 308. I have received report from SILVINA Mclaughlin, and had the opportunity to ask questions and assume patient care.
--- NOTE | 2019-08-01 19:12 | NUR ---
Problems reprioritized. Patient report given, questions answered & plan of care reviewed with SILVINA Aragon.
[2019-08-01] MEDS: carVEDilol 12.5mg tablet PO SCH (19:13)
[2019-08-01] MEDS: potassium Cl 20 mEq SR tablet PO SCH (19:34)
[2019-08-01] MEDS: magnesium Cl slow-release 64mg tablet PO SCH (19:34)
[2019-08-01] MEDS: insulin glargine (Lantus) pen - multi-dose SQ SCH (21:00)
--- NOTE | 2019-08-01 22:14 | NUR ---
Attempted to call PA twice, phone was busy. RN won't follow Lantus order of 30 units due to pt has a GFR of 24. 2100 blood sugar was 170, RN will give 6 units of Lantus based on protocol
[2019-08-02 02:00] VITALS: BP 134/88
[2019-08-02 05:23] LABS: BASOPHILS % (AUTO) 0.1 % (0-1); EOSINOPHILS % (AUTO) 0 % (0-6); HEMATOCRIT 32.3 % (42.0-52.0); HEMOGLOBIN 10.7 g/dl (14.0-17.9); LYMPHOCYTES # (AUTO) 1.3 X10'3 (1.1-4.8); LYMPHOCYTES % (AUTO) 6.5 % (21-51); MEAN CORPUSCULAR HEMOGLOBIN 30.2 PG (27.0-31.0); MEAN CORPUSCULAR HGB CONC 33.1 g/dL (33.0-36.5); MEAN CORPUSCULAR VOLUME 91.2 FL (78-98); MEAN PLATELET VOLUME 8.3 FL (7.4-10.4); MONOCYTES # (AUTO) 1.7 X10'3 (0-0.9); MONOCYTES % (AUTO) 8.3 % (2-12); NEUTROPHILS % (AUTO) 85.1 % (42-75); PLATELET COUNT 127 X10'3 (140-440); RED BLOOD COUNT 3.54 X10'6 (4.70-6.10)
[2019-08-02 05:37] LABS: ALBUMIN 2.9 G/DL (3.4-5.0); ANION GAP 9 (8-16); BLOOD UREA NITROGEN 58 MG/DL (7-18); BUN/CREATININE RATIO 25.9 (5.4-32.0); CALCIUM 6.9 MG/DL (8.5-10.1); CHLORIDE 101 MMOL/L (99-107); CREATININE 2.24 MG/DL (0.60-1.10); GLUCOSE 156 MG/DL (70-104); SODIUM 135 MMOL/L (135-145); TOTAL CARBON DIOXIDE 24.7 MMOL/L (24-32); eGFR 31 ML/MIN
[2019-08-02 06:00] VITALS: BP 145/91
--- NOTE | 2019-08-02 06:00 | NUR ---
Problems reprioritized. Patient report given, questions answered & plan of care reviewed with SILVINA Mclaughlin.
[2019-08-02 06:40] LABS: MAGNESIUM 2.6 MG/DL (1.5-2.4)
--- NOTE | 2019-08-02 06:49 | NUR ---
Patient in room MED 308. I have received report from SILVINA Aragon and had the opportunity to ask questions and assume patient care.
[2019-08-02] MEDS: pantoprazole 40mg Tablet.DR PO SCH (08:06)
[2019-08-02] MEDS: docusate sod 100mg capsule PO SCH ×2 (08:06→20:01)
[2019-08-02] MEDS: magnesium Cl slow-release 64mg tablet PO SCH ×2 (08:07→20:00)
[2019-08-02] MEDS: rivaroxaban 15mg tablet PO SCH (08:07)
[2019-08-02] MEDS: aspirin 81mg tablet.DR PO SCH (08:07)
[2019-08-02] MEDS: atorvastatin 20mg tablet PO SCH (08:07)
[2019-08-02] MEDS: potassium Cl 20 mEq SR tablet PO SCH ×2 (08:07→20:01)
[2019-08-02] MEDS: carVEDilol 12.5mg tablet PO SCH ×2 (08:08→20:02)
[2019-08-02] MEDS: amiodarone 200mg tablet PO SCH ×3 (08:08→21:31)
[2019-08-02] MEDS: insulin Lispro (HumaLOG) vial - multi-dose SQ SCH ×3 (09:36→20:15)
[2019-08-02 11:00] VITALS: BP 134/90
[2019-08-02 15:00] VITALS: BP 134/89
--- NOTE | 2019-08-02 17:44 | NUR ---
F/u for nutrition consult: Pt seen at bedside with [id number] present provided with written and verbal nutrition and wound healing after cardiac surgery education with RD contact information. Pt very receptive to education. Pt agrees to double protein and double veggies TID for satiety, d/w dietary. Will continue to follow. Addendum: 08/02/19 at [address] Amended: Links added.
[2019-08-02 18:00] VITALS: BP 167/91
--- NOTE | 2019-08-02 19:03 | NUR ---
Patient in room MED 308. I have received report from ROE COOL and had the opportunity to ask questions and assume patient care.
[2019-08-02] MEDS: HYDROcodone/acetaminophen 10/325mg tab PO PRN (20:00)
[2019-08-02] MEDS: insulin glargine (Lantus) pen - multi-dose SQ SCH (21:37)
[2019-08-02 22:00] VITALS: BP 161/92
[2019-08-03 02:00] VITALS: BP 161/96
[2019-08-03 06:00] VITALS: BP 139/79
--- NOTE | 2019-08-03 06:00 | NUR ---
Preceptee documentation: I have reviewed and agree with all interventions, assessments performed and documented by SILVINA Leonard.
[2019-08-03 06:16] LABS: BASOPHILS % (AUTO) 0.1 % (0-1); EOSINOPHILS % (AUTO) 0 % (0-6); HEMATOCRIT 31.4 % (42.0-52.0); HEMOGLOBIN 10.5 g/dl (14.0-17.9); LYMPHOCYTES # (AUTO) 1.3 X10'3 (1.1-4.8); LYMPHOCYTES % (AUTO) 8.5 % (21-51); MEAN CORPUSCULAR HEMOGLOBIN 30.8 PG (27.0-31.0); MEAN CORPUSCULAR HGB CONC 33.6 g/dL (33.0-36.5); MEAN CORPUSCULAR VOLUME 91.9 FL (78-98); MONOCYTES # (AUTO) 1.2 X10'3 (0-0.9); MONOCYTES % (AUTO) 7.6 % (2-12); NEUTROPHILS # (AUTO) 13.2 X10'3 (1.8-7.7); NEUTROPHILS % (AUTO) 83.8 % (42-75); PLATELET COUNT 133 X10'3 (140-440); RED BLOOD COUNT 3.41 X10'6 (4.70-6.10); RED CELL DISTRIBUTION WIDTH 15.8 % (11.5-14.5); WHITE BLOOD COUNT 15.8 X10'3 (4.5-11.0)
--- NOTE | 2019-08-03 06:26 | NUR ---
Problems reprioritized. Patient report given, questions answered & plan of care reviewed with ROE COOL.
[2019-08-03 06:29] LABS: ALBUMIN 2.8 G/DL (3.4-5.0); ANION GAP 11 (8-16); BLOOD UREA NITROGEN 54 MG/DL (7-18); BUN/CREATININE RATIO 32.3 (5.4-32.0); CALCIUM 6.7 MG/DL (8.5-10.1); CHLORIDE 103 MMOL/L (99-107); CREATININE 1.67 MG/DL (0.60-1.10); GLUCOSE 165 MG/DL (70-104); POTASSIUM 3.7 MMOL/L (3.5-5.1); SODIUM 139 MMOL/L (135-145); TOTAL CARBON DIOXIDE 25.5 MMOL/L (24-32); eGFR 43 ML/MIN
--- NOTE | 2019-08-03 06:50 | NUR ---
Patient in room MED 308. I have received report from SILVINA Leonard and had the opportunity to ask questions and assume patient care.
[2019-08-03 07:02] LABS: MAGNESIUM 2.6 MG/DL (1.5-2.4)
[2019-08-03] MEDS: rivaroxaban 15mg tablet PO SCH (07:43)
[2019-08-03] MEDS: potassium Cl 20 mEq SR tablet PO SCH ×2 (07:43→20:04)
[2019-08-03] MEDS: magnesium Cl slow-release 64mg tablet PO SCH ×2 (07:43→20:00)
[2019-08-03] MEDS: amiodarone 200mg tablet PO SCH ×3 (07:44→20:57)
[2019-08-03] MEDS: docusate sod 100mg capsule PO SCH ×2 (07:44→20:04)
[2019-08-03] MEDS: aspirin 81mg tablet.DR PO SCH (07:44)
[2019-08-03] MEDS: atorvastatin 20mg tablet PO SCH (07:44)
[2019-08-03] MEDS: pantoprazole 40mg Tablet.DR PO SCH (07:44)
[2019-08-03] MEDS: potassium Cl 20 mEq SR tablet PO PRN ×3 (07:45→23:41)
[2019-08-03] MEDS: carVEDilol 12.5mg tablet PO SCH ×2 (07:45→20:04)
[2019-08-03] MEDS: metFORMIN 500mg tablet PO SCH ×2 (09:52→17:28)
[2019-08-03 11:00] VITALS: BP 144/86
[2019-08-03 15:00] VITALS: BP 149/89
[2019-08-03 18:00] VITALS: BP 189/106
--- NOTE | 2019-08-03 18:23 | NUR ---
Problems reprioritized. Patient report given, questions answered & plan of care reviewed with SILVINA Leonard and SILVINA Aragon.
[2019-08-03] MEDS: HYDROcodone/acetaminophen 10/325mg tab PO PRN (20:54)
[2019-08-03] MEDS: insulin glargine (Lantus) pen - multi-dose SQ SCH (21:42)
[2019-08-03 22:00] VITALS: BP 142/80
[2019-08-03] MEDS ORDERED: hydrALAZINE 20mg/ml inj. IV PRN (22:05)
--- NOTE | 2019-08-03 22:07 | NUR ---
CALLED DR GRIMM REGARDING ELEVATED BP, RECEIVED ORDER
--- NOTE | 2019-08-03 22:14 | NUR ---
Patient in room MED 308. I have received report from ROE COLO and had the opportunity to ask questions and assume patient care. Addendum: 08/03/19 at 2215 by Summer Johansen RN TIME WAS ACTUALLY 1800
[2019-08-04 02:00] VITALS: BP 152/87
--- NOTE | 2019-08-04 05:59 | NUR ---
Preceptee documentation: I have reviewed and agree with all interventions, assessments performed and documented by SILVINA Leonard.
[2019-08-04 06:00] VITALS: BP 147/86
--- NOTE | 2019-08-04 06:36 | NUR ---
Left report sheet with charge nurse, information will be relayed to SILVINA Balderas.
--- NOTE | 2019-08-04 07:00 | NUR ---
Patient in room MED 308. I have received report from SILVINA Mark and had the opportunity to ask questions and assume patient care.
[2019-08-04] MEDS: potassium Cl 20 mEq SR tablet PO SCH ×2 (08:00→20:00)
[2019-08-04] MEDS: magnesium Cl slow-release 64mg tablet PO SCH ×2 (08:00→21:26)
[2019-08-04] MEDS: metFORMIN 500mg tablet PO SCH ×2 (08:37→17:46)
[2019-08-04] MEDS: docusate sod 100mg capsule PO SCH ×2 (08:38→21:26)
[2019-08-04] MEDS: amiodarone 200mg tablet PO SCH ×3 (08:38→21:26)
[2019-08-04] MEDS: pantoprazole 40mg Tablet.DR PO SCH (08:38)
[2019-08-04] MEDS: aspirin 81mg tablet.DR PO SCH (08:39)
[2019-08-04] MEDS: carVEDilol 12.5mg tablet PO SCH ×2 (08:39→21:26)
[2019-08-04] MEDS: atorvastatin 20mg tablet PO SCH (08:39)
[2019-08-04] MEDS: rivaroxaban 15mg tablet PO SCH (08:44)
[2019-08-04] MEDS: insulin Lispro (HumaLOG) vial - multi-dose SQ SCH ×2 (08:49→19:09)
[2019-08-04 09:59] LABS: BASOPHILS % (AUTO) 0.2 % (0-1); EOSINOPHILS # (AUTO) 0.1 X10'3 (0-0.9); EOSINOPHILS % (AUTO) 0.7 % (0-6); HEMATOCRIT 33.1 % (42.0-52.0); HEMOGLOBIN 11.1 g/dl (14.0-17.9); LYMPHOCYTES # (AUTO) 1.6 X10'3 (1.1-4.8); LYMPHOCYTES % (AUTO) 9.4 % (21-51); MEAN CORPUSCULAR HEMOGLOBIN 30.7 PG (27.0-31.0); MEAN CORPUSCULAR HGB CONC 33.6 g/dL (33.0-36.5); MEAN CORPUSCULAR VOLUME 91.5 FL (78-98); MONOCYTES # (AUTO) 1.4 X10'3 (0-0.9); MONOCYTES % (AUTO) 8.3 % (2-12); NEUTROPHILS # (AUTO) 13.5 X10'3 (1.8-7.7); NEUTROPHILS % (AUTO) 81.4 % (42-75); PLATELET COUNT 188 X10'3 (140-440); RED BLOOD COUNT 3.61 X10'6 (4.70-6.10); WHITE BLOOD COUNT 16.6 X10'3 (4.5-11.0)
[2019-08-04 10:09] LABS: ALBUMIN 2.9 G/DL (3.4-5.0); ANION GAP 9 (8-16); BLOOD UREA NITROGEN 44 MG/DL (7-18); CALCIUM 7.1 MG/DL (8.5-10.1); CHLORIDE 103 MMOL/L (99-107); CREATININE 1.42 MG/DL (0.60-1.10); GLUCOSE 145 MG/DL (70-104); POTASSIUM 3.9 MMOL/L (3.5-5.1); SODIUM 136 MMOL/L (135-145); TOTAL CARBON DIOXIDE 23.7 MMOL/L (24-32); eGFR 52 ML/MIN
[2019-08-04 10:28] LABS: TOTAL CELLS COUNTED 100
[2019-08-04 10:29] LABS: ANISOCYTOSIS 1+; PLATELET ESTIMATE NORMAL; POLYCHROMASIA 1+
[2019-08-04] MEDS: potassium Cl 20 mEq SR tablet PO PRN (10:56)
[2019-08-04 11:00] VITALS: BP 174/108
[2019-08-04 11:25] LABS: MAGNESIUM 2.2 MG/DL (1.5-2.4)
--- NOTE | 2019-08-04 12:48 | NUR ---
Initial: Pt s/p CABG/MV PO 100% meals meeting needs advanced to Na-restricted/renal/fluid-restricted 425ml dietary per diet order. LBM 08/02. No nutrition concerns at this time. Will continue to monitor. Rec: 1. advance diet per MD to renal/fl-restricted per MD approval 2. double proteins/veggies w/ meals 3. wt per rx Addendum: 08/04/19 at [address] Amended: Links added.
[2019-08-04] MEDS ORDERED: furosemide 40mg/4ml inj IV ONE (14:50)
[2019-08-04 15:00] VITALS: BP 156/96
[2019-08-04 18:00] VITALS: BP 145/81
--- NOTE | 2019-08-04 18:00 | NUR ---
Patient in room MED 308. I have received report from SILVINA RODRIGUEZ and had the opportunity to ask questions and assume patient care.
[2019-08-04] MEDS ORDERED: diphenhydrAMINE 25mg capsule PO PRN (20:20)
[2019-08-04] MEDS: acetaminophen 325mg tablet PO PRN (21:26)
[2019-08-04] MEDS: insulin glargine (Lantus) pen - multi-dose SQ SCH (21:33)
[2019-08-04 22:00] VITALS: BP 138/83
[2019-08-05 02:00] VITALS: BP 130/76
[2019-08-05 06:00] VITALS: BP 134/84
--- NOTE | 2019-08-05 06:19 | NUR ---
Patient in room MED 308. I have received report from SILVINA Yuan and had the opportunity to ask questions and assume patient care.
--- NOTE | 2019-08-05 06:19 | NUR ---
Problems reprioritized. Patient report given, questions answered & plan of care reviewed with SILVINA Balderas.
[2019-08-05 06:27] LABS: ALBUMIN 2.7 G/DL (3.4-5.0); ANION GAP 10 (8-16); BLOOD UREA NITROGEN 41 MG/DL (7-18); BUN/CREATININE RATIO 26.6 (5.4-32.0); CALCIUM 7.7 MG/DL (8.5-10.1); CHLORIDE 104 MMOL/L (99-107); CREATININE 1.54 MG/DL (0.60-1.10); GLUCOSE 112 MG/DL (70-104); MAGNESIUM 2.3 MG/DL (1.5-2.4); SODIUM 140 MMOL/L (135-145); TOTAL CARBON DIOXIDE 26.2 MMOL/L (24-32); eGFR 47 ML/MIN
[2019-08-05] MEDS: rivaroxaban 15mg tablet PO SCH (07:37)
[2019-08-05] MEDS: metFORMIN 500mg tablet PO SCH ×2 (07:37→17:27)
[2019-08-05] MEDS: amiodarone 200mg tablet PO SCH ×2 (07:38→20:17)
[2019-08-05] MEDS: docusate sod 100mg capsule PO SCH ×2 (07:38→20:14)
[2019-08-05] MEDS: aspirin 81mg tablet.DR PO SCH (07:39)
[2019-08-05] MEDS: carVEDilol 12.5mg tablet PO SCH ×2 (07:39→20:18)
[2019-08-05] MEDS: potassium Cl 20 mEq SR tablet PO SCH ×2 (07:40→20:14)
[2019-08-05] MEDS: atorvastatin 20mg tablet PO SCH (07:40)
[2019-08-05] MEDS: magnesium Cl slow-release 64mg tablet PO SCH ×2 (07:41→20:12)
[2019-08-05] MEDS: pantoprazole 40mg Tablet.DR PO SCH (07:43)
[2019-08-05] MEDS ORDERED: furosemide 40mg/4ml inj IV ONE (09:00)
[2019-08-05 11:00] VITALS: BP 124/77
--- NOTE | 2019-08-05 14:46 | NUR ---
DM Consult: Pt newly DX DM per MD A1C 8.5 07/25. Pt/brother who will be caregiver seen by RD for written/verbal DM ed w/ new DM handout and sick day guidelines in addition to RD contact information provided. RD encouraged to attend CDE course and contact RD if further diet questions. Addendum: 08/05/19 at [address] Amended: Links added.
[2019-08-05] MEDS ORDERED: Melatonin 3mg tablet PO PRN (16:05)
[2019-08-05 18:00] VITALS: BP 136/93
--- NOTE | 2019-08-05 18:00 | NUR ---
Patient in room MED 308. I have received report from Sherrie COOL and had the opportunity to ask questions and assume patient care.
--- NOTE | 2019-08-05 18:30 | NUR ---
Problems reprioritized. Patient report given, questions answered & plan of care reviewed with SILVINA Moran.
[2019-08-05 22:20] VITALS: BP 147/94
[2019-08-06 02:00] VITALS: BP 133/79
[2019-08-06 05:22] LABS: ALBUMIN 2.7 G/DL (3.4-5.0); ANION GAP 11 (8-16); BLOOD UREA NITROGEN 40 MG/DL (7-18); BUN/CREATININE RATIO 24.7 (5.4-32.0); CALCIUM 7.4 MG/DL (8.5-10.1); CHLORIDE 103 MMOL/L (99-107); CREATININE 1.62 MG/DL (0.60-1.10); GLUCOSE 119 MG/DL (70-104); POTASSIUM 3.9 MMOL/L (3.5-5.1); SODIUM 139 MMOL/L (135-145); TOTAL CARBON DIOXIDE 25.4 MMOL/L (24-32); eGFR 45 ML/MIN
[2019-08-06 06:00] VITALS: BP 136/87
[2019-08-06] MEDS ORDERED: METF-950 PO (07:15)
[2019-08-06] MEDS ORDERED: AMIO200T61 PO (07:41)
[2019-08-06] MEDS: atorvastatin 20mg tablet PO SCH (08:03)
[2019-08-06] MEDS: pantoprazole 40mg Tablet.DR PO SCH (08:03)
[2019-08-06] MEDS: amiodarone 200mg tablet PO SCH (08:03)
[2019-08-06] MEDS: magnesium Cl slow-release 64mg tablet PO SCH (08:03)
[2019-08-06] MEDS: aspirin 81mg tablet.DR PO SCH (08:03)
[2019-08-06] MEDS: potassium Cl 20 mEq SR tablet PO SCH (08:04)
[2019-08-06] MEDS: carVEDilol 12.5mg tablet PO SCH (08:04)
[2019-08-06] MEDS: docusate sod 100mg capsule PO SCH (08:04)
[2019-08-06] MEDS: potassium Cl 20 mEq SR tablet PO PRN (08:04)
[2019-08-06] MEDS: rivaroxaban 15mg tablet PO SCH (08:04)
[2019-08-06] MEDS: metFORMIN 500mg tablet PO SCH (08:04)
[2019-08-06] MEDS: acetaminophen 325mg tablet PO PRN (08:05)
[2019-08-06 08:26] LABS: MAGNESIUM 2.1 MG/DL (1.5-2.4)
--- NOTE | 2019-08-06 09:05 | NUR ---
Called medications into [facility] on [address] at this time. Addendum: 08/06/19 at 0927 by Linda oTrres RN called medications into [facility] on [address].
--- NOTE | 2019-08-06 10:00 | NUR ---
PROVIDED PATIENT WITH DISCHARGE INSTRUCTIONS WELL INFORMATION AND REGIMEN OF NEW PRESCRIPTIONS. PATIENT AWARE HE NEEDS TO CALL AND MAKE AN APPOINTMENT WITH DR. ORTEGA'S OFFICE FOR 2 WEEKS FROM NOW. PROVIDED PATIENT WITH CARDIAC REHAB [facility]. PRESCRIPTIONS CALLED INTO [facility] ON [address] PER PT REQUEST. PT DENIES QUESTIONS OR CONCERNS. IV REMOVED, CATHETER INTACT, WITH MINIMAL BLEEDING CLEAN GAUZE APPLIED AND SECURED WITH TAPE. ACCOMPANIED DOWN VIA WHEELCHAIR TO GO HOME WITH HIS BROTHER.
== END 2019-08-06 10:10 | disposition home or self-care (01) | DRG 219 ==
LOC: EDSTATUS 07:30 → PAS IN 07-30 04:44 → EDSTATUS 07-30 07:00 → ICU 2S 07-30 13:37 → MED 3N 08-01 11:33
PROVIDERS: ADMIT Thoracic Surgery (Cardiothoracic Vascular Surgery); ATTEND Thoracic Surgery (Cardiothoracic Vascular Surgery)
PROC: 02100Z9 Bypass Coronary Artery, One Artery from Left Internal Mammary, Open Approach (ICD-10-PCS; 2019-07-30)
PROC: 021209W Bypass Coronary Artery, Three Arteries from Aorta with Autologous Venous Tissue, Open Approach (ICD-10-PCS; 2019-07-30)
PROC: 06BQ4ZZ Excision of Left Saphenous Vein, Percutaneous Endoscopic Approach (ICD-10-PCS; 2019-07-30)
PROC: 02580ZZ Destruction of Conduction Mechanism, Open Approach (ICD-10-PCS; 2019-07-30)
PROC: B24BZZ4 Ultrasonography of Heart with Aorta, Transesophageal (ICD-10-PCS; 2019-07-30)
PROC: 5A1221Z Performance of Cardiac Output, Continuous (ICD-10-PCS; 2019-07-30)
PROC: 02L70CK Occlusion of Left Atrial Appendage with Extraluminal Device, Open Approach (ICD-10-PCS; 2019-07-30)
PROC: 02UG08Z Supplement Mitral Valve with Zooplastic Tissue, Open Approach (ICD-10-PCS; principal; 2019-07-30 06:14)
PROC: 5A09357 Assistance with Respiratory Ventilation, Less than 24 Consecutive Hours, Continuous Positive Airway Pressure (ICD-10-PCS; 2019-07-31)
PROC: 5A09357 Assistance with Respiratory Ventilation, Less than 24 Consecutive Hours, Continuous Positive Airway Pressure (ICD-10-PCS; 2019-08-01)
PROC: 5A09357 Assistance with Respiratory Ventilation, Less than 24 Consecutive Hours, Continuous Positive Airway Pressure (ICD-10-PCS; 2019-08-02)
DX: I34.0 Nonrheumatic mitral (valve) insufficiency (principal); I50.43 Acute on chronic combined systolic (congestive) and diastolic (congestive) heart failure; N17.0 Acute kidney failure with tubular necrosis; I13.0 Hypertensive heart and chronic kidney disease with heart failure and stage 1 through stage 4 chronic kidney disease, or unspecified chronic kidney disease; I48.21 Permanent atrial fibrillation; Z68.41 Body mass index [BMI] 40.0-44.9, adult; E66.01 Morbid (severe) obesity due to excess calories; G47.33 Obstructive sleep apnea (adult) (pediatric); E11.22 Type 2 diabetes mellitus with diabetic chronic kidney disease; I25.10 Atherosclerotic heart disease of native coronary artery without angina pectoris; I25.5 Ischemic cardiomyopathy; N18.3 Chronic kidney disease, stage 3 (moderate); M19.90 Unspecified osteoarthritis, unspecified site; R94.39 Abnormal result of other cardiovascular function study; Z79.01 Long term (current) use of anticoagulants; Z82.3 Family history of stroke; Z82.49 Family history of ischemic heart disease and other diseases of the circulatory system; Z79.82 Long term (current) use of aspirin
CPT/HCPCS: 0232T; 93312; 93325; Z7506; Z7508; 36415; 36600; 71045; 71046; 80048; 80053; 81001; 82330; 82435; 82803; 82810; 82947; 82948; 83036; 83735; 84100; 84132; 84295; 85018; 85025; 85347; 85384; 85610; 85730; 86885; 86900; 86901; 86920; 87081; 93005; 93880; 93926; 93971; 94002; 94010; 94150; 94660; 94668; 94760; 97110; 97116; 97161; 97530; A4618; A6258; A6402; A6449; A7000; A7048; C1713; C1751; C9113; G0378; J0171; J0330; J0690; J1265; J1644; J1815; J1940; J2001; J2060; J2150; J2250; J2260; J2270; J2370; J2440; J2720; J2795; J2930; J3370; J3475; J3480; J3490; J7030; J7040; J7050; J7060; J7120; P9045; P9047; Q0163

== ENCOUNTER 2019-08-12 08:14 | Emergency (ER) | payer BC ==
[~2019-08-12] VITALS: Ht 182.9 cm; Wt 136.4 kg
[~2019-08-12 08:14] MED LIST changes: +AMIO200T61 PO; -DOCUMENT DATE & TIME OF BETA-BLOCKER PO ONE; +METF-950 PO; -ceFAZolin/D5W- 1GM premix 50 ML IV ONE; -cefazolin/dext.iso 2gm/50ml 50 ML IV ONE; -dextrose 50%-water 50ml dispensing syringe IV PRN; -famotidine 20mg tablet PO ONE; -gabapentin 300mg capsule PO ONE; -insulin Lispro (HumaLOG) vial - multi-dose SQ PRN; -insulin regular, human 100 UNIT in normal saline 100ml IV soln 99 ML IV SCH; -metoprolol tartrate 12.5mg (1/2 tablet) PO ONE; -mupirocin 2% nasal ointment 1gm UD NS ONE; -ringers solution, lacted 1,000 ML IV SCH; -vancomycin inj 1,500 MG in normal saline 300ml IV soln IV ONE
--- NOTE | 2019-08-12 09:11 | NUR ---
LABS DRAWN AT BEDSIDE PER ORDERS, NOW EKG BEING COMPLETED PER ORDERS
[2019-08-12 09:34] LABS: BASOPHILS % (AUTO) 0.3 % (0-1); EOSINOPHILS # (AUTO) 0.1 X10'3 (0-0.9); EOSINOPHILS % (AUTO) 0.9 % (0-6); HEMATOCRIT 29.4 % (42.0-52.0); HEMOGLOBIN 9.9 g/dl (14.0-17.9); LYMPHOCYTES % (AUTO) 9.7 % (21-51); MEAN CORPUSCULAR HEMOGLOBIN 30.8 PG (27.0-31.0); MEAN CORPUSCULAR HGB CONC 33.7 g/dL (33.0-36.5); MEAN CORPUSCULAR VOLUME 91.4 FL (78-98); MEAN PLATELET VOLUME 7.3 FL (7.4-10.4); MONOCYTES # (AUTO) 0.9 X10'3 (0-0.9); NEUTROPHILS # (AUTO) 8.8 X10'3 (1.8-7.7); NEUTROPHILS % (AUTO) 81.1 % (42-75); PLATELET COUNT 282 X10'3 (140-440); RED BLOOD COUNT 3.22 X10'6 (4.70-6.10); WHITE BLOOD COUNT 10.9 X10'3 (4.5-11.0)
[2019-08-12 09:37] LABS: CLARITY,URINE SLIGHTLY CLOUDY (Clear); COLOR,URINE YELLOW (Yellow); GLUCOSE, URINE NEGATIVE (Neg); KETONES,URINE NEGATIVE (Neg); LEUKOCYTE ESTERASE ,URINE NEGATIVE (Neg); NITRITES, URINE NEGATIVE (Neg); OCCULT BLOOD,URINE LARGE (Neg); PROTEIN,URINE TRACE mg/dl (Neg); UROBILINOGEN,URINE 0.2 E.U/dL (0.2-1.0)
[2019-08-12 09:40] LABS: UA COLLECTION TYPE URINAL
[2019-08-12 09:44] LABS: ALANINE AMINOTRANSFERASE 56 U/L (12-78); ALBUMIN 2.6 G/DL (3.4-5.0); ALBUMIN/GLOBULIN RATIO 0.7 (1.1-1.5); ALKALINE PHOSPHATASE 78 IU/L (46-116); ANION GAP 10 (8-16); ASPARTATE AMINO TRANSFERASE 29 U/L (10-37); BILIRUBIN,TOTAL 0.8 MG/DL (0.1-1.0); BLOOD UREA NITROGEN 35 MG/DL (7-18); BUN/CREATININE RATIO 18.3 (5.4-32.0); CHLORIDE 103 MMOL/L (99-107); CREATININE 1.91 MG/DL (0.60-1.10); GLUCOSE 166 MG/DL (70-104); POTASSIUM 3.8 MMOL/L (3.5-5.1); SODIUM 137 MMOL/L (135-145); TOTAL CARBON DIOXIDE 24.1 MMOL/L (24-32); TOTAL PROTEIN 6.3 G/DL (6.4-8.2); eGFR 37 ML/MIN
[2019-08-12 09:45] LABS: BACTERIA,URINE NONE SEEN /HPF (Neg); MUCUS STRANDS NONE SEEN /LPF (Neg); RBC,URINE TNTC /HPF (0-2); SQUAMOUS EPITHELIAL CELL,UR FEW /LPF (FEW)
[2019-08-12 09:46] LABS: URIC ACID CRYSTALS 3+ /HPF (NEGATIVE)
[2019-08-12] MEDS ORDERED: FURO-149 PO (09:53)
--- NOTE | 2019-08-12 10:32 | NUR ---
DR SALAS DISCUSSED WITH KYLE RODGERS TO KEEP PT HERE UNTIL DR ORTEGA RETURNS CALL FOR CONSULT, PT MADE AWARE
--- NOTE | 2019-08-12 11:31 | NUR ---
UPDATE KYLE RODGERS PT BP 99/62, PT FEELING WEAK, LOOKS A LITTLE PALE BG 120, OK TO HAVE PT EAT WHILE WAITING FOR JORDAN, PT FAMILY BROUGHT PT SANDWICH, ORDER HEMAGRAM AND IV IN CASE PT NEEDS IV FLUIDS
[2019-08-12 11:59] LABS: HEMATOCRIT 32.2 % (42.0-52.0); HEMOGLOBIN 10.7 g/dl (14.0-17.9); MEAN CORPUSCULAR HEMOGLOBIN 30.5 PG (27.0-31.0); MEAN CORPUSCULAR HGB CONC 33.2 g/dL (33.0-36.5); MEAN CORPUSCULAR VOLUME 91.7 FL (78-98); MEAN PLATELET VOLUME 7.3 FL (7.4-10.4); PLATELET COUNT 337 X10'3 (140-440); RED BLOOD COUNT 3.52 X10'6 (4.70-6.10); RED CELL DISTRIBUTION WIDTH 16.7 % (11.5-14.5); WHITE BLOOD COUNT 13.2 X10'3 (4.5-11.0)
[2019-08-12 13:55] VITALS: BP 110/81
== END 2019-08-12 14:00 | disposition home or self-care (01) ==
LOC: ER 08:15
DX: R31.9 Hematuria, unspecified (principal); E66.9 Obesity, unspecified; I25.10 Atherosclerotic heart disease of native coronary artery without angina pectoris; I50.9 Heart failure, unspecified; E11.9 Type 2 diabetes mellitus without complications; Z79.82 Long term (current) use of aspirin; Z79.899 Other long term (current) drug therapy; Z95.1 Presence of aortocoronary bypass graft
CPT/HCPCS: 36415; 76775; 80053; 81001; 82948; 85025; 85027; 87088; 93005; 99285

== ENCOUNTER 2019-08-23 12:26 | Emergency (ER) | payer BC ==
[~2019-08-23] VITALS: Ht 182.9 cm; Wt 140.0 kg
[~2019-08-23 12:26] MED LIST changes: +FURO-149 PO
[2019-08-23 12:58] LABS: CLARITY,URINE CLEAR (Clear); COLOR,URINE YELLOW (Yellow); GLUCOSE, URINE NEGATIVE (Neg); KETONES,URINE NEGATIVE (Neg); LEUKOCYTE ESTERASE ,URINE NEGATIVE (Neg); NITRITES, URINE NEGATIVE (Neg); OCCULT BLOOD,URINE LARGE (Neg); PH,URINE 5.5 (4.8-8.0); PROTEIN,URINE NEGATIVE (Neg); UROBILINOGEN,URINE 0.2 E.U/dL (0.2-1.0)
[2019-08-23 13:01] LABS: UA COLLECTION TYPE CLN CATCH MIDSTREAM
[2019-08-23 13:08] LABS: SQUAMOUS EPITHELIAL CELL,UR FEW /LPF (FEW)
[2019-08-23 13:09] LABS: BACTERIA,URINE FEW /HPF (Neg); RBC,URINE TNTC /HPF (0-2)
[2019-08-23 14:37] LABS: BASOPHILS # (AUTO) 0.1 X10'3 (0-0.2); EOSINOPHILS # (AUTO) 0.1 X10'3 (0-0.9); EOSINOPHILS % (AUTO) 1.5 % (0-6); HEMATOCRIT 30.9 % (42.0-52.0); HEMOGLOBIN 10.3 g/dl (14.0-17.9); LYMPHOCYTES # (AUTO) 0.8 X10'3 (1.1-4.8); LYMPHOCYTES % (AUTO) 9.1 % (21-51); MEAN CORPUSCULAR HEMOGLOBIN 30.4 PG (27.0-31.0); MEAN CORPUSCULAR HGB CONC 33.2 g/dL (33.0-36.5); MEAN CORPUSCULAR VOLUME 91.7 FL (78-98); MONOCYTES # (AUTO) 0.8 X10'3 (0-0.9); NEUTROPHILS # (AUTO) 7.2 X10'3 (1.8-7.7); NEUTROPHILS % (AUTO) 79.4 % (42-75); PLATELET COUNT 403 X10'3 (140-440); RED BLOOD COUNT 3.37 X10'6 (4.70-6.10); RED CELL DISTRIBUTION WIDTH 17.7 % (11.5-14.5)
[2019-08-23 14:44] VITALS: BP 127/83
[2019-08-23 14:52] LABS: ALANINE AMINOTRANSFERASE 37 U/L (12-78); ALBUMIN/GLOBULIN RATIO 0.7 (1.1-1.5); ALKALINE PHOSPHATASE 91 IU/L (46-116); ANION GAP 12 (8-16); ASPARTATE AMINO TRANSFERASE 22 U/L (10-37); BILIRUBIN,TOTAL 0.8 MG/DL (0.1-1.0); BLOOD UREA NITROGEN 27 MG/DL (7-18); BUN/CREATININE RATIO 10.4 (5.4-32.0); CALCIUM 8.8 MG/DL (8.5-10.1); CHLORIDE 101 MMOL/L (99-107); GLUCOSE 93 MG/DL (70-104); POTASSIUM 4.4 MMOL/L (3.5-5.1); SODIUM 138 MMOL/L (135-145); TOTAL CARBON DIOXIDE 25.4 MMOL/L (24-32); TOTAL PROTEIN 7.3 G/DL (6.4-8.2); eGFR 26 ML/MIN
== END 2019-08-23 15:11 | disposition home or self-care (01) ==
LOC: ER 12:27
DX: R31.9 Hematuria, unspecified (principal); R30.9 Painful micturition, unspecified; R39.15 Urgency of urination; I25.10 Atherosclerotic heart disease of native coronary artery without angina pectoris; I50.9 Heart failure, unspecified; Z95.1 Presence of aortocoronary bypass graft; Z79.82 Long term (current) use of aspirin; Z79.899 Other long term (current) drug therapy
CPT/HCPCS: 36415; 80053; 81001; 85025; 87088; 99283

== ENCOUNTER 2019-11-05 13:49 | Day surgery (SDC) | payer BC ==
[2019-11-05] VITALS (13 sets, daily range): BP systolic 99–122; BP diastolic 51–78
[~2019-11-05] VITALS: Ht 182.9 cm; Wt 127.6 kg
[2019-11-05] MEDS ORDERED: fentaNYL/PF 50MCG/1 ML 2ML syringe IV ONE (14:30)
[2019-11-05] MEDS ORDERED: normal saline 1000ml 1,000 ML IV SCH (14:30)
[2019-11-05] MEDS ORDERED: MIDAZolam 5mg/ml 2ml vial IV ONE (14:30)
[2019-11-05] MEDS ORDERED: METF500T PO (15:04)
[2019-11-05] MEDS ORDERED: AMIO200T61 PO (15:07)
[2019-11-05] MEDS ORDERED: FERR325T28 PO (15:40)
== END 2019-11-05 19:20 | disposition home or self-care (01) ==
LOC: SSTAY O 13:49
PROVIDERS: ATTEND Internal Medicine Interventional Cardiology
DX: I48.91 Unspecified atrial fibrillation (principal); G47.33 Obstructive sleep apnea (adult) (pediatric); E11.22 Type 2 diabetes mellitus with diabetic chronic kidney disease; I13.0 Hypertensive heart and chronic kidney disease with heart failure and stage 1 through stage 4 chronic kidney disease, or unspecified chronic kidney disease; I50.9 Heart failure, unspecified; N18.9 Chronic kidney disease, unspecified; I25.10 Atherosclerotic heart disease of native coronary artery without angina pectoris; Z79.82 Long term (current) use of aspirin; Z79.899 Other long term (current) drug therapy; E66.9 Obesity, unspecified; Z68.38 Body mass index [BMI] 38.0-38.9, adult
CPT/HCPCS: 92960; 93005; 94760; J2250; J3010; J7030

== ENCOUNTER 2021-10-27 12:21 | Inpatient (IN) | payer BC ==
[~2021-10-27] VITALS: Ht 185.4 cm; Wt 136.4 kg
[~2021-10-27 12:21] MED LIST changes: +FERR325T28 PO; -LISI2.5T2 PO; +LISI5TAB22 PO; -METF-950 PO; +METF500T PO; -RIVA15TA PO
[2021-10-27] MEDS ORDERED: acetaminophen 325mg tablet PO ONE (13:10)
[2021-10-27 13:14] LABS: BASOPHILS # (AUTO) 0.1 X10'3 (0-0.2); BASOPHILS % (AUTO) 0.9 % (0-1); EOSINOPHILS # (AUTO) 0.2 X10'3 (0-0.9); EOSINOPHILS % (AUTO) 2.7 % (0-6); HEMATOCRIT 34.5 % (42.0-52.0); HEMOGLOBIN 11.2 g/dl (14.0-17.9); LYMPHOCYTES # (AUTO) 0.6 X10'3 (1.1-4.8); MEAN CORPUSCULAR HEMOGLOBIN 28.9 PG (27.0-31.0); MEAN CORPUSCULAR HGB CONC 32.5 g/dL (33.0-36.5); MEAN CORPUSCULAR VOLUME 88.9 FL (78-98); MONOCYTES # (AUTO) 0.7 X10'3 (0-0.9); MONOCYTES % (AUTO) 8.5 % (2-12); NEUTROPHILS # (AUTO) 6.1 X10'3 (1.8-7.7); NEUTROPHILS % (AUTO) 79.9 % (42-75); PLATELET COUNT 321 X10'3 (140-440); RED BLOOD COUNT 3.88 X10'6 (4.70-6.10); RED CELL DISTRIBUTION WIDTH 17.2 % (11.5-14.5); WHITE BLOOD COUNT 7.6 X10'3 (4.5-11.0)
[2021-10-27 13:28] LABS: ALANINE AMINOTRANSFERASE 27 U/L (12-78); ALBUMIN 3.2 G/DL (3.4-5.0); ALBUMIN/GLOBULIN RATIO 0.7 (1.1-1.5); ALKALINE PHOSPHATASE 110 IU/L (46-116); ANION GAP 10 (8-16); ASPARTATE AMINO TRANSFERASE 16 U/L (10-37); BILIRUBIN,TOTAL 0.9 MG/DL (0.1-1.0); BLOOD UREA NITROGEN 29 MG/DL (7-18); BUN/CREATININE RATIO 14.8 (5.4-32.0); CALCIUM 8.9 MG/DL (8.5-10.1); CHLORIDE 105 MMOL/L (99-107); CREATININE 1.96 MG/DL (0.60-1.10); GLUCOSE 110 MG/DL (70-104); POTASSIUM 5.2 MMOL/L (3.5-5.1); SODIUM 137 MMOL/L (135-145); TOTAL CARBON DIOXIDE 21.8 MMOL/L (24-32); TOTAL PROTEIN 7.8 G/DL (6.4-8.2); eGFR 36 ML/MIN
[2021-10-27 13:32] LABS: D-DIMER 8.84 MG/L FEU (0-0.50)
[2021-10-27] MEDS ORDERED: heparin 10,000 units/1 ML INJ IV ONE ×4 (13:45→14:40)
[2021-10-27] MEDS ORDERED: heparin 10,000 units/1 ML INJ IV PRN ×3 (13:45→14:50)
[2021-10-27] MEDS ORDERED: heparin 25,000 UNIT/250ml bag 250 ML IV SCH ×3 (13:45→14:50)
[2021-10-27 14:06] LABS: ANISOCYTOSIS 1+; ELLIPTOCYTES FEW; GIANT PLATELET FEW; PLATELET ESTIMATE NORMAL
[2021-10-27] MEDS ORDERED: PERFLUTREN PROTEIN-A MICROSPHR (Optison) 0.22 MG/ML 3ML VIAL IV ONE (14:50)
[2021-10-27] MEDS ORDERED: ondansetron/PF 4mg/2ml inj IV PRN (14:50)
[2021-10-27] MEDS ORDERED: acetaminophen 325mg tablet PO PRN ×2 (14:50)
[2021-10-27 15:22] LABS: BASOPHILS % (AUTO) 0.5 % (0-1); EOSINOPHILS # (AUTO) 0.2 X10'3 (0-0.9); EOSINOPHILS % (AUTO) 2.6 % (0-6); HEMATOCRIT 34.1 % (42.0-52.0); LYMPHOCYTES # (AUTO) 0.5 X10'3 (1.1-4.8); LYMPHOCYTES % (AUTO) 7.4 % (21-51); MEAN CORPUSCULAR HEMOGLOBIN 28.7 PG (27.0-31.0); MEAN CORPUSCULAR HGB CONC 32.4 g/dL (33.0-36.5); MEAN CORPUSCULAR VOLUME 88.7 FL (78-98); MEAN PLATELET VOLUME 6.7 FL (7.4-10.4); MONOCYTES # (AUTO) 0.6 X10'3 (0-0.9); MONOCYTES % (AUTO) 8.2 % (2-12); NEUTROPHILS # (AUTO) 6.1 X10'3 (1.8-7.7); NEUTROPHILS % (AUTO) 81.3 % (42-75); PLATELET COUNT 311 X10'3 (140-440); RED BLOOD COUNT 3.84 X10'6 (4.70-6.10); RED CELL DISTRIBUTION WIDTH 17.1 % (11.5-14.5); WHITE BLOOD COUNT 7.4 X10'3 (4.5-11.0)
[2021-10-27] MEDS ORDERED: FERR324T4 PO (15:24)
[2021-10-27 15:33] LABS: APTT 54 SECONDS (22-32)
[2021-10-27] MEDS: CefTRIAXone 2gm/D5W 50ml BAG 50 ML IV SCH (15:44)
--- NOTE | 2021-10-27 16:19 | NUR ---
breaking primary nurse at this time ,install technician at bedside.
[2021-10-27] MEDS ORDERED: dextrose ORAL solution 15 GM/59 ML bottle PO PRN ×2 (18:55)
[2021-10-27] MEDS ORDERED: dextrose 50%-water 50ml dispensing syringe IV PRN ×2 (18:55)
[2021-10-27] MEDS ORDERED: insulin Lispro (HumaLOG) vial - multi-dose SQ SCH (18:55)
[2021-10-27] MEDS ORDERED: glucagon, human recombinant 1mg kit SUBCUT PRN (18:55)
[2021-10-27] MEDS ORDERED: MESSAGE TO PHARMACY PO ONE (18:55)
[2021-10-27] MEDS ORDERED: aspirin 325mg tablet, delayed-release (Ecotrin) PO ONE (19:05)
[2021-10-27 19:10] LABS: HEMOGLOBIN A1C 6.1 % (4.5-6.2)
[2021-10-27] MEDS: carVEDilol 12.5mg tablet PO SCH (20:04)
[2021-10-27] MEDS: furosemide 40mg/4ml inj IV SCH (20:04)
[2021-10-27] MEDS: ferrous sulfate 325mg tablet PO SCH (20:04)
[2021-10-27] MEDS: lisinopril 5mg tablet PO SCH (20:07)
[2021-10-27] MEDS ORDERED: insulin glargine (Lantus) pen - multi-dose SQ SCH (21:00)
[2021-10-27] MEDS ORDERED: atorvastatin 20mg tablet PO SCH (21:00)
[2021-10-27 23:00] VITALS: BP 119/50
--- NOTE | 2021-10-27 23:00 | NUR ---
Patient received from ED. Patient alert and oriented able to make needs known. Oriented to room and call [facility] system. Skin intact. Requesting to be connected to CPAP. Heparin drip continued. APTT resulted for 0 therapeutic. Will recheck in the a.m per protocol. Patient able to ambulate as needed to bathroom. No SOB or chest pain assessed. Belongings in reach. Will continue to monitor.
[2021-10-28 02:00] VITALS: BP 111/57
[2021-10-28 06:06] VITALS: BP 103/50
[2021-10-28] MEDS ORDERED: aspirin 81mg, enteric-coated 1 TAB TABLET.DR PO SCH (08:00)
[2021-10-28] MEDS: ferrous sulfate 325mg tablet PO SCH (09:27)
[2021-10-28] MEDS: furosemide 40mg/4ml inj IV SCH (09:27)
[2021-10-28] MEDS: carVEDilol 12.5mg tablet PO SCH (09:27)
[2021-10-28 09:28] VITALS: BP_SYST 103
[2021-10-28] MEDS: CefTRIAXone 2gm/D5W 50ml BAG 50 ML IV SCH (09:28)
[2021-10-28] MEDS: lisinopril 5mg tablet PO SCH (09:28)
[2021-10-28] MEDS ORDERED: FURO40TA4 PO (09:29)
[2021-10-28 09:30] LABS: BASOPHILS % (AUTO) 0.4 % (0-1); EOSINOPHILS # (AUTO) 0.2 X10'3 (0-0.9); EOSINOPHILS % (AUTO) 3.3 % (0-6); HEMATOCRIT 33.4 % (42.0-52.0); HEMOGLOBIN 10.8 g/dl (14.0-17.9); LYMPHOCYTES # (AUTO) 0.7 X10'3 (1.1-4.8); LYMPHOCYTES % (AUTO) 10.5 % (21-51); MEAN CORPUSCULAR HGB CONC 32.3 g/dL (33.0-36.5); MEAN CORPUSCULAR VOLUME 89.8 FL (78-98); MEAN PLATELET VOLUME 7.2 FL (7.4-10.4); MONOCYTES # (AUTO) 0.6 X10'3 (0-0.9); MONOCYTES % (AUTO) 9.6 % (2-12); NEUTROPHILS % (AUTO) 76.2 % (42-75); PLATELET COUNT 326 X10'3 (140-440); RED BLOOD COUNT 3.73 X10'6 (4.70-6.10); RED CELL DISTRIBUTION WIDTH 17.5 % (11.5-14.5); WHITE BLOOD COUNT 6.6 X10'3 (4.5-11.0)
[2021-10-28 09:53] LABS: ALBUMIN 3.1 G/DL (3.4-5.0); ALBUMIN/GLOBULIN RATIO 0.6 (1.1-1.5); ALKALINE PHOSPHATASE 106 IU/L (46-116); ANION GAP 15 (8-16); ASPARTATE AMINO TRANSFERASE 22 U/L (10-37); BILIRUBIN,TOTAL 0.6 MG/DL (0.1-1.0); BLOOD UREA NITROGEN 38 MG/DL (7-18); BUN/CREATININE RATIO 18.1 (5.4-32.0); CALCIUM 8.9 MG/DL (8.5-10.1); CHLORIDE 107 MMOL/L (99-107); GLUCOSE 83 MG/DL (70-104); POTASSIUM 4.8 MMOL/L (3.5-5.1); SODIUM 141 MMOL/L (135-145); TOTAL CARBON DIOXIDE 18.8 MMOL/L (24-32); eGFR 33 ML/MIN
[2021-10-28 10:39] LABS: ALANINE AMINOTRANSFERASE 27 U/L (12-78)
[2021-10-28] MEDS ORDERED: DOXY-243 PO (11:34)
== END 2021-10-28 12:00 | disposition home or self-care (01) | DRG 193 ==
LOC: ER 12:22 → ED HOLD 14:55 → PCU 3S 22:50
PROVIDERS: ADMIT Internal Medicine; ATTEND Internal Medicine
PROC: 5A09357 Assistance with Respiratory Ventilation, Less than 24 Consecutive Hours, Continuous Positive Airway Pressure (ICD-10-PCS; 2021-10-27)
PROC: CB121ZZ Planar Nuclear Medicine Imaging of Lungs and Bronchi using Technetium 99m (Tc-99m) (ICD-10-PCS; principal; 2021-10-28)
DX: J18.9 Pneumonia, unspecified organism (principal); I50.33 Acute on chronic diastolic (congestive) heart failure; I13.0 Hypertensive heart and chronic kidney disease with heart failure and stage 1 through stage 4 chronic kidney disease, or unspecified chronic kidney disease; I25.10 Atherosclerotic heart disease of native coronary artery without angina pectoris; J20.9 Acute bronchitis, unspecified; G47.30 Sleep apnea, unspecified; R73.03 Prediabetes; N18.30 Chronic kidney disease, stage 3 unspecified; Z20.822 Contact with and (suspected) exposure to COVID-19; I50.813 Acute on chronic right heart failure; E78.5 Hyperlipidemia, unspecified; R09.02 Hypoxemia; Z79.899 Other long term (current) drug therapy; Z95.1 Presence of aortocoronary bypass graft; Z79.82 Long term (current) use of aspirin
CPT/HCPCS: 36415; 71045; 78582; 80053; 82948; 83036; 83605; 83880; 84145; 84484; 85008; 85025; 85379; 85610; 85730; 87040; 87081; 87635; 93005; 93306; 96374; 99285; A9539; A9540; G0378; J0696; J1644; J1815; J1940

== ENCOUNTER 2022-01-28 06:49 | Day surgery (SDC) | payer BC ==
[~2022-01-28] VITALS: Ht 182.9 cm; Wt 123.7 kg
[~2022-01-28 06:49] MED LIST changes: -AMIO200T61 PO; +FERR324T4 PO; -FERR325T28 PO; -FURO-149 PO; -METF500T PO
[2022-01-28] MEDS ORDERED: albumin 25% 100mL bottle x 1 IV PRN (07:05)
[2022-01-28 07:23] VITALS: BP 91/54
[2022-01-28] MEDS ORDERED: LIDOcaine 1%/PF 5ML 10 MG/ML VIAL SQ ONE (07:25)
[2022-01-28 08:54] VITALS: BP 109/60
[2022-01-28 09:05] VITALS: BP 91/57
[2022-01-28 09:23] VITALS: BP 91/62
[2022-01-28 09:38] VITALS: BP 97/52
[2022-01-28 10:01] LABS: GLUCOSE,BODY FLUID 79 MG/DL; LDH,BODY FLUID 130 U/L; TOTAL PROTEIN,BODY FLUID 2.4 G/DL
[2022-01-28 10:09] LABS: BF RBC COUNT 11700 /CU MM; BF WBC COUNT 525 /CU MM (0-1000); BFAPPEAR CLOUDY; BFCOLOR YELLOW; BFVOLUME 49 ML; EOSINOPHILS,BODY FLUID 1 %; LYMPHOCYTES,BODY FLUID 88 %; MONOCYTES,BODY FLUID 7 %; NEUTROPHILS,BODY FLUID 4 %
== END 2022-01-28 10:00 | disposition home or self-care (01) ==
LOC: SSTAY O 06:49
PROVIDERS: ATTEND Preventive Medicine Aerospace Medicine
DX: J90 Pleural effusion, not elsewhere classified (principal); I25.10 Atherosclerotic heart disease of native coronary artery without angina pectoris; E11.22 Type 2 diabetes mellitus with diabetic chronic kidney disease; I12.9 Hypertensive chronic kidney disease with stage 1 through stage 4 chronic kidney disease, or unspecified chronic kidney disease; N18.9 Chronic kidney disease, unspecified; I50.9 Heart failure, unspecified; I48.91 Unspecified atrial fibrillation; G47.33 Obstructive sleep apnea (adult) (pediatric); E66.9 Obesity, unspecified; Z68.37 Body mass index [BMI] 37.0-37.9, adult; Z95.1 Presence of aortocoronary bypass graft; Z95.2 Presence of prosthetic heart valve; Z98.890 Other specified postprocedural states; Z79.899 Other long term (current) drug therapy; Z79.82 Long term (current) use of aspirin
CPT/HCPCS: 32555; 82945; 83615; 84157; 87070; 89051; J3490